=== PATIENT | male | born 1965 | race Caucasian/White ===

== ENCOUNTER 2016-07-04 22:46 | Inpatient (IN) | payer OTHER ==
[~2016-07-04] VITALS: Ht 190.5 cm; Wt 74.8 kg
[2016-07-05 02:00] VITALS: Ht 190.5 cm; Wt 74.8 kg
[2016-07-05] MEDS: SOD CHLORIDE 0.45% 1,000 ML IV SCH ×3 (02:21→22:00)
[2016-07-05] MEDS: NICOTINE (21 MG/24 HR) PATCH TRANSDERM SCH ×2 (02:31→08:38)
[2016-07-05] MEDS ORDERED: LANT3I SC (03:36)
[2016-07-05] MEDS ORDERED: METF-382 PO (03:36)
[2016-07-05] MEDS ORDERED: GABA300C16 PO (03:36)
[2016-07-05] MEDS: morphine 2 MG INJ IV PRN ×4 (03:45→20:04)
[2016-07-05] MEDS ORDERED: ACETAMINOPHEN 325 MG TAB PO PRN (06:00)
[2016-07-05] MEDS ORDERED: ZOLPIDEM 5 MG TAB PO PRN (06:00)
[2016-07-05] MEDS ORDERED: GLUCOSE GEL 15 GRAM TUBE PO PRN ×2 (06:00)
[2016-07-05] MEDS ORDERED: DEXTROSE 50% 50 ML SYRINGE IV PRN ×2 (06:00)
[2016-07-05] MEDS ORDERED: NACL 0.9% 3 ML SYG IV SCH (06:00)
[2016-07-05] MEDS ORDERED: GLUCAGON 1 MG INJ IM PRN (06:00)
[2016-07-05] MEDS ORDERED: GLUCOSE GEL 15 GRAM TUBE BUCCAL PRN (06:00)
[2016-07-05] MEDS ORDERED: ONDANSETRON 4 MG INJ IV PRN (06:00)
[2016-07-05] MEDS ORDERED: DOCUSATE SODIUM 100 MG CAP PO PRN (06:00)
[2016-07-05 06:55] LABS: BASOPHILS % 0.4 % (0.0-2.0); EOSINOPHILS # 0.1 10^3/ul (0.0-0.5); EOSINOPHILS % 1.9 % (0.0-7.0); HEMATOCRIT 38.9 % (42.0-52.0); HEMOGLOBIN 13.3 g/dl (14.0-18.0); LYMPHOCYTES # 2.8 10^3/ul (0.8-2.9); LYMPHOCYTES % 37.9 % (15.0-51.0); MEAN CORPUSCULAR HEMOGLOBIN 32.3 pg (29.0-33.0); MEAN CORPUSCULAR HGB CONC 34.3 g/dl (32.0-37.0); MEAN CORPUSCULAR VOLUME 94.2 fl (82.0-101.0); MEAN PLATELET VOLUME 7.5 fl (7.4-10.4); MONOCYTE # 0.8 10^3/ul (0.3-0.9); MONOCYTES % 10.4 % (0.0-11.0); NEUTROPHIL # 3.7 10^3/ul (1.6-7.5); NEUTROPHILS % 49.4 % (39.0-77.0); PLATELET COUNT 203 10^3/UL (140-440); RED BLOOD COUNT 4.12 10^6/ul (4.70-6.10); RED CELL DISTRIBUTION WIDTH 13.1 % (11.5-14.5); UNCORRECTED WBC 7.5 10^3/ul (4.8-10.8); WHITE BLOOD COUNT 7.5 10^3/ul (4.8-10.8)
[2016-07-05 07:01] LABS: CONDITION 1
--- NOTE | 2016-07-05 07:23 | HP ---
DATE OF ADMISSION: 07/05/2016 TIME: 6:45 a.m. CHIEF COMPLAINT: Left-sided flank pain. HISTORY OF PRESENT ILLNESS: The patient is a 51-year-old male with a history of insulin-dependent d iabetes as well as back pain status post back surgeries in the past. The patient was diagnosed with a kidney stone on the left side approximately 3 months ago and has had intermittent pain since then , but his pain became significantly worse yesterday and presented to [facility] where he barger d a CT scan that did show a kidney stone on the left side. Pain is improved with morphine and he wa s unable to see a urologist as of yet because of insurance reasons. The patient has no other compla ints at this time. PAST MEDICAL HISTORY: Insulin-dependent diabetes. nephrolithiasis diagnosed 3 months ago. The steven ent has never had a previous diagnosis of nephrolithiasis, prior to that, back pain status post back surgery and arthritis. HOME MEDICATIONS: 1. Gabapentin. 2. Lantus. 3. Metformin. ALLERGIES: NO KNOWN DRUG ALLERGIES. FAMILY HISTORY: Mother with rheumatoid arthritis. SOCIAL HISTORY: Denies alcohol abuse. Denies any drug abuse. Does smoke approximately 10 cigarett es a day. REVIEW OF SYSTEMS: A 12-point review of systems is negative except that discussed in HPI. PHYSICAL EXAMINATION: VITAL SIGNS: Stable. GENERAL: No acute distress, alert and oriented. HEENT: Normocephalic, atraumatic. LUNGS: Clear to auscultation. CARDIOVASCULAR: Regular rate and rhythm. ABDOMEN: Nondistended, nontender, soft. EXTREMITIES: No clubbing, cyanosis, or edema. LABORATORIES: Not available at this time. DIAGNOSTICS: Not available at this time. ASSESSMENT AND PLAN: 1. Nephrolithiasis. This was diagnosed 3 months ago and the pain has been intermittent. The pain became significantly worse yesterday. Will treat with IV fluids. Will get a urology consultation w christian Hinkle. 2. Diabetes. Continue home insulin regimen. 3. Chronic back pain. Continue home gabapentin as well as morphine and [place] for pain control. 4. Prophylaxis, ambulation. Dictated By: FREEDOM CHAU MD BS/NTS Conf#: [id number] DID#: [id number]
[2016-07-05 07:24] LABS: POTASSIUM 4.8 mmol/L (3.5-5.1)
[2016-07-05 07:27] LABS: CREATININE 0.82 mg/dl (0.61-1.24); PHOSPHORUS 3.6 mg/dl (2.5-4.9)
[2016-07-05 07:28] LABS: CALCIUM 9.1 mg/dl (8.4-10.2); CHOL/HDL RATIO 2.8 RATIO; MAGNESIUM 1.6 mg/dl (1.7-2.5)
[2016-07-05 07:51] VITALS: BP 117/73; RESP 18
[2016-07-05] MEDS: INSULIN ASPART [NOVOLOG] 3 ML PEN SC SCH ×5 (08:37→20:07)
[2016-07-05] MEDS: GABAPENTIN 300 MG CAP PO SCH ×2 (08:38→20:04)
[2016-07-05] MEDS: metFORMIN 500 MG TAB PO SCH ×2 (08:38→17:15)
[2016-07-05] MEDS: HYDROCODONE/APAP (5/325) TAB PO PRN (11:41)
--- NOTE | 2016-07-05 13:34 | CONS ---
DATE OF ADMISSION: 07/05/2016 DATE OF CONSULTATION: 07/05/2016 REQUESTING PHYSICIAN: Dr. Nick. Dear Dr. Nick: Thank you for asking me to see this patient in urological consultation. HISTORY OF PRESENT ILLNESS: This is a 51-year-old male who initially presented to another hospital, [facility], with left-sided flank pain and had a CT scan and that showed a stone in his left kidney . The patient was transferred to [facility] because of insurance. The patient st ated that he has had this problem for over 3 months and at the time he lost his insurance and then h e became medical eligible again, did regain his insurance and then he came into the emergency room. The patient states that he does have occasional hematuria with the pain and some nausea but no vomi ting. Also does have a history of back pain and he has had a fusion and back surgery lumbar area. PAST MEDICAL HISTORY: The patient is also known to have a history of diabetes and has been on Lantu s and metformin and he also takes gabapentin for peripheral neuropathy and also from his back proble ms. ALLERGIES: THE PATIENT HAS NO KNOWN DRUG ALLERGIES. SOCIAL HISTORY: He smokes about 10 cigarettes a day and he does not drink and there is no history of drug abuse. A systems review was done 12-point and that is negative except what is mentioned in the present report. PHYSICAL EXAMINATION: GENERAL: Reveals a 51-year-old male. He weighs 74.8 kg and he is 75 inches tall. VITAL SIGNS: Temperature is 98.4, respiration is 18, blood pressure 117/73. ABDOMEN: He does have left flank tenderness. GENITALIA: External genitalia are normal. EXTREMITIES: Does have a scar in the lower back from prior surgery. LABORATORY DATA: CBC shows a white count of 7.5, hemoglobin 13.3, hematocrit 38.9. BUN is 22, crea tinine 0.82, sodium 143, potassium 4.8, chloride 101, CO2 30. IMPRESSION History of kidney stones and the patient did undergo a CT scan at [facility], b ut they did not send with him the report or the CT scan on the CD and the patient may be having abner turia because the stone may be at the ureteropelvic junction and causing some bleeding sometime. PLAN: To give him pain medication as needed and also get a KUB to see if one could see the stone an d try to get the report of the CT scan from [facility] and then we will decide on the next step. Dictated By: NARINDER ONEIL MD BB/NTS Conf#: [id number] DID#: [id number] CC: FREEDOM NICK MD;*EndCC*
--- NOTE | 2016-07-05 14:46 | RADRPT ---
PROCEDURE: XR Abdomen. CLINICAL INDICATION: Abdominal pain. TECHNIQUE: AP, supine and erect abdomen x-ray. COMPARISON: None. FINDINGS: The bowel gas pattern is unremarkable. There is no evidence of free air or obstruction. There are 3 calcifications measuring between 3 and 5 mm in size overlying the right kidney to the upper pole and 1 in the lower pole compatible with nephrolithiasis. A 1.2 by 0.7 cm left of white calcification i n the region of the left UPJ. Calcification along the course of the pancreas suggesting chronic alvares creatitis. Posterior lumbar fusion of L4 - L5 and L5-S1. The osseus structures are unremarkable. IMPRESSION: Bilateral nephrolithiasis. Calcifications overlying the pancreas compatible with sequelae of chronic pancreatitis. Posterior lumbar fusion of L4-S1. RPTAT:AAJJ Physician Elda Date Time Electronically viewed and signed by Physician Elda on 07/05/2016 14:23 MELISSA/
[2016-07-05] MEDS ORDERED: MAGNESIUM SULFATE 2 GM/50 ML 50 ML IVPB ONE (15:00)
--- NOTE | 2016-07-05 15:00 | QN ---
Documentation Comment Reviewed labs. Appropriate orders put in. Plan of care was explained to the patient. Case discussed with Dr. Roa. KASHIF HERNANDEZ NP Jul 05, 2016 15:00
[2016-07-05 19:58] VITALS: BP 117/69; RESP 18
[2016-07-05 20:00] VITALS: BP 117/69; PULSE 60; RESP 18
[2016-07-05] MEDS: INSULIN GLARGINE [LANtus] 3 ML PEN SC SCH (20:07)
[2016-07-06] VITALS (11 sets, daily range): BP systolic 108–150; BP diastolic 62–92; PULSE 50–57; RESP 15–29
[2016-07-06] MEDS: ACCUCHECK XX SCH (02:00)
[2016-07-06] MEDS: morphine 2 MG INJ IV PRN ×4 (03:04→19:36)
[2016-07-06] MEDS: SOD CHLORIDE 0.45% 1,000 ML IV SCH ×2 (03:05→14:58)
[2016-07-06 05:47] LABS: BASOPHILS % 0.5 % (0.0-2.0); EOSINOPHILS # 0.2 10^3/ul (0.0-0.5); EOSINOPHILS % 3.7 % (0.0-7.0); HEMATOCRIT 37.7 % (42.0-52.0); HEMOGLOBIN 12.8 g/dl (14.0-18.0); LYMPHOCYTES # 1.8 10^3/ul (0.8-2.9); LYMPHOCYTES % 33.2 % (15.0-51.0); MEAN CORPUSCULAR HEMOGLOBIN 32.1 pg (29.0-33.0); MEAN CORPUSCULAR VOLUME 94.3 fl (82.0-101.0); MEAN PLATELET VOLUME 8.1 fl (7.4-10.4); MONOCYTE # 0.5 10^3/ul (0.3-0.9); MONOCYTES % 9.1 % (0.0-11.0); NEUTROPHIL # 2.9 10^3/ul (1.6-7.5); NEUTROPHILS % 53.5 % (39.0-77.0); PLATELET COUNT 185 10^3/UL (140-440); RED CELL DISTRIBUTION WIDTH 13.3 % (11.5-14.5); UNCORRECTED WBC 5.4 10^3/ul (4.8-10.8); WHITE BLOOD COUNT 5.4 10^3/ul (4.8-10.8)
[2016-07-06 05:56] LABS: POTASSIUM 5.2 mmol/L (3.5-5.1)
[2016-07-06 05:57] LABS: CONDITION 1
[2016-07-06 05:58] LABS: CREATININE 0.8 mg/dl (0.61-1.24)
[2016-07-06 06:09] LABS: MAGNESIUM 1.7 mg/dl (1.7-2.5); PHOSPHORUS 3.8 mg/dl (2.5-4.9)
[2016-07-06] MEDS ORDERED: NEOSTIGMINE 3 MG/3 ML SYRINGE ONE (07:00)
[2016-07-06] MEDS ORDERED: GLYCOPYRROLATE 0.4 MG INJ ONE (07:00)
[2016-07-06] MEDS: INSULIN ASPART [NOVOLOG] 3 ML PEN SC SCH ×7 (07:30→20:56)
[2016-07-06] MEDS: metFORMIN 500 MG TAB PO SCH (07:34)
[2016-07-06] MEDS: NICOTINE (21 MG/24 HR) PATCH TRANSDERM SCH (08:01)
[2016-07-06] MEDS: GABAPENTIN 300 MG CAP PO SCH ×2 (08:01→20:57)
--- NOTE | 2016-07-06 08:47 | RADRPT ---
PROCEDURE: XR Chest. CLINICAL INDICATION: Preoperative chest TECHNIQUE: Chest AP portable. COMPARISON: No comparison available. FINDINGS: The mediastinal structures are unremarkable. The heart is normal in size and configuration. The pu lmonary vascularity is normal. The lung pino are unremarkable. No consolidation is identified. The pleural spaces are unremarkable. The axial skeleton is unremarkable. IMPRESSION: No active intrathoracic disease. RPTAT: HGDB .Ham Macdonald MD, MD Date Time Electronically viewed and signed by .Ham Macdonald MD, MD on 07/06/2016 08:47 .B/
[2016-07-06 10:21] LABS: INR 1.11; PROTIME 14.3 Sec (12.2-14.2); PT RATIO 1.1
[2016-07-06 10:22] LABS: PARTIAL THROMBOPLASTIN TIME 26.3 Sec (25.0-35.0)
[2016-07-06] MEDS ORDERED: NA POLYST SULFON 15 GM/60 ML BTL PO ONE (10:30)
--- NOTE | 2016-07-06 10:40 | PN ---
DATE: 07/06/2016 SUBJECTIVE: Left renal stone with hematuria. Patient has been having abdominal pain and initially went to [facility] and was transferred to [facility] because of capitation on his insurance through [facility]. OBJECTIVE: VITAL SIGNS: The patient is afebrile. His temperature is 97.8, the pulse is 50, respiration 20, bl ood pressure 108/62. ABDOMEN: The patient does have left flank tenderness. LABORATORY DATA: His CBC shows a white count of 5.4, hemoglobin 12.8, hematocrit 37.7. The platele t count is 185,000. BUN is 14, creatinine 0.8, sodium 143, potassium 5.2, chloride 104, CO2 30. Th e patient had a KUB as I ordered yesterday; unfortunately, the KUB was misread as saying calcificati on overlying the pancreas compatible with sequela of chronic pancreatitis, and I don't think that is correct, that calcification. There is a calcification, 1.2 x cm stone, at the left ureterope lvic junction. And there may be calcification sequela of pancreatitis, but there is also that stone of 1.2 x mm stone at the left ureteropelvic junction. IMPRESSION: Left ureteropelvic junction stone. PLAN: To do a left extracorporeal shock wave lithotripsy, and also in case we cannot visualize the stone on the plain film, we will do a cystoscopy and insertion of left ureteral catheter to try to v isualize that stone. The procedure was explained to the patient; benefits, risks, possible complica tions were also discussed with him including and not limited to bleeding, infection stone fragments coming down the ureter and causing obstruction to where he needs another procedure with ureteroscopy and laser lithotripsy, and the patient did understand all of that and he is agreeable to proceed. Dictated By: NARINDER ONEIL MD BB/ELIDA Conf#: [id number] DID#: [id number] CC: FREEDOM CHAU MD;*EndCC*
--- NOTE | 2016-07-06 10:41 | PN ---
DATE: 07/06/2016 TIME OF EVALUATION: 10:15 a.m. SUBJECTIVE DATA: Complains of abdominal pain with spasms. OBJECTIVE DATA: VITAL SIGNS: Temperature 97.8, pulse rate 50, respiratory rate 20, blood pressure 108/62, oxygen saturation 98% on room air. GENERAL: This is a well-built, well-nourished male patient lying in bed in no apparent distress. HEENT: Head normocephalic and atraumatic. Eyes: Anicteric sclerae. Conjunctivae clear. ENT: Nasal septum is midline. Oral mucosa is dry. NECK: Supple. No JVD noticed. RESPIRATORY: Bilaterally clear to auscultation. No adventitious breath sounds. No use of accessory muscles of respiration. CARDIAC: Regular rate and rhythm. No murmurs. ABDOMEN: Soft. Diffuse tenderness. Bowel sounds hypoactive in all 4 quadrants. GENITOURINARY: Deferred. EXTREMITIES: No cyanosis, no clubbing, no edema. Peripheral pulses palpable. NEUROLOGIC: The patient is awake, alert and oriented. Cranial nerves are grossly intact. LABORATORY AND DIAGNOSTIC DATA: WBC 5.4, hemoglobin 12.8, hematocrit 37.7, platelet count 185. Sodium 143, potassium 5.0, chloride 104, carbon dioxide 30 , anion gap 14, BUN 14, creatinine 0.80, glucose 146, calcium 9.0, phosphorus 3.8, magnesium 1.7. ASSESSMENT AND PLAN: 1. Symptomatic nephrolithiasis. Continue pain control. Status post evaluation by urology. Scheduled for left extracorporeal shock wave lithotripsy and possible cystoscopy and insertion of left ureteral catheter. The patient's renal function is within normal limits. 2. Type 2 diabetes mellitus. Hemoglobin A1c 7.4. Continue sliding scale insulin along with Lantus insulin. Metformin will be put on hold in case if there is any use of IV contrast during the surgery. 3. Hyperkalemia. Etiology unclear. No evidence of any acidosis or worsening renal function. Will give a single dose of potassium exchange resin. 4. Sinus bradycardia. The patient asymptomatic. A 12-lead EKG showing right bundle branch block. Avoid any AV galo blocking agents. 5. Diabetic neuropathy. Continue gabapentin. 6. Nicotine use. Cessation advised. 7. Fluid, electrolytes and nutrition. NPO except for medications for surgery. 8. Deep venous thrombosis prophylaxis with bilateral sequential compression devices and ambulation. 10. Gastrointestinal prophylaxis with histamine 2 receptor blockers. PLAN: Give a single dose of potassium exchange of resin. Continue pain control. Await urology intervention. Case discussed with Dr. Brown. KASHIF BROWN MD, AM/ELIDA Conf#: [id number] DID#: [id number] MTDD
[2016-07-06] MEDS: FAMOTIDINE 20 MG TAB PO SCH ×2 (11:15→20:57)
[2016-07-06 12:43] LABS: POTASSIUM 4.1 mmol/L (3.5-5.1)
[2016-07-06] MEDS ORDERED: LIDOCAINE 100 MG SYRINGE ONE (17:34)
[2016-07-06] MEDS ORDERED: DEXAMETHASONE 4 MG/ML 1 ML INJ ONE (17:34)
[2016-07-06] MEDS ORDERED: ROCURONIUM 50 MG INJ ONE (17:34)
[2016-07-06] MEDS ORDERED: ONDANSETRON 4 MG INJ ONE (17:34)
[2016-07-06] MEDS ORDERED: PROPOFOL 20 ML ONE (17:34)
--- NOTE | 2016-07-06 19:37 | OPR ---
DATE OF OPERATION: 07/06/2016 PREOPERATIVE DIAGNOSIS: Left ureteropelvic junction stone measuring 12 x 8 mm in size. POSTOPERATIVE DIAGNOSIS: Left ureteropelvic junction stone measuring 12 x 8 millimeter in size. OPERATION PERFORMED: Left extracorporeal shock wave lithotripsy. TECHNIQUE: The patient was brought to the operating room. The patient was positioned in the supine position on the lithotripsy machine table. Fluoroscopy was done to make sure that we were able to see the stone, and indeed, one could see the stone; therefore, there was no need to do any cystoscop y or insert a ureteral catheter. Then, the patient was given general anesthesia and a timeout was d one. The patient was identified by his name, date and the site of the procedure. Following that, the patient was adjusted on the lithotripsy machine table. So the stone was visuali zed on the 2 screens, and the stone was put in the focal point of the lithotripsy machine. As we st arted to deliver the energy for the lithotripsy, he immediately started having PVCs; therefore, we h ad to gauge him. So we had another set of cardiac monitoring hooked to the machine and that allowed us to gauge him all the time; there were no further PVCs. The energy was started with low and grad ually went up to 7. The position of the stone was regularly checked and position adjusted. Now and then we did remove the shock head and looked at the stone again to make sure that we were still on it and then resumed the treatment after that. We kept checking that. At the end of the procedure, he received a total of 2500 shocks to the stone and the patient at the end was transferred to the re covery room in stable and satisfactory condition. Dictated By: NARINDER WORTHY/ELIDA Conf#: [id number] DID#: [id number]
--- NOTE | 2016-07-06 20:28 | RADRPT ---
PROCEDURE: Intraoperative imaging of the abdomen with fluoroscopy. CLINICAL INDICATION: Abdominal pain. Intraoperative. TECHNIQUE: 12 images of the abdomen and pelvis were obtained in the operating room with an image i ntensifier. No radiologist was in attendance. 229.4 second of fluoroscopy time was used. COMPARISON: No prior study is available for comparison. FINDINGS: Images demonstrate fluoroscopic guidance for left renal lithotripsy. IMPRESSION: 1. Satisfactory intraoperative imaging of the abdomen. RPTAT: QQ .Sharif Dean MD, Date Time Electronically viewed and signed by .Sharif Dean MD, on 07/06/2016 20:28 .R/
[2016-07-06] MEDS: INSULIN GLARGINE [LANtus] 3 ML PEN SC SCH (20:59)
[2016-07-07] MEDS: ACCUCHECK XX SCH (01:15)
[2016-07-07] MEDS: morphine 2 MG INJ IV PRN ×4 (01:48→14:20)
[2016-07-07] MEDS: SOD CHLORIDE 0.45% 1,000 ML IV SCH ×2 (05:05→14:41)
[2016-07-07 06:29] LABS: BASOPHILS % 0.2 % (0.0-2.0); HEMATOCRIT 37.6 % (42.0-52.0); HEMOGLOBIN 13.1 g/dl (14.0-18.0); LYMPHOCYTES # 0.4 10^3/ul (0.8-2.9); LYMPHOCYTES % 10.5 % (15.0-51.0); MEAN CORPUSCULAR HEMOGLOBIN 32.8 pg (29.0-33.0); MEAN CORPUSCULAR HGB CONC 34.9 g/dl (32.0-37.0); MEAN PLATELET VOLUME 8.2 fl (7.4-10.4); MONOCYTE # 0.2 10^3/ul (0.3-0.9); MONOCYTES % 3.8 % (0.0-11.0); NEUTROPHIL # 3.4 10^3/ul (1.6-7.5); NEUTROPHILS % 85.5 % (39.0-77.0); PLATELET COUNT 186 10^3/UL (140-440); RED CELL DISTRIBUTION WIDTH 12.9 % (11.5-14.5)
[2016-07-07 06:43] LABS: CONDITION 1
[2016-07-07 06:45] LABS: ALBUMIN 3.5 g/dl (3.3-4.9)
[2016-07-07 06:46] LABS: MAGNESIUM 1.5 mg/dl (1.7-2.5); PHOSPHORUS 4.3 mg/dl (2.5-4.9); POTASSIUM 4.5 mmol/L (3.5-5.1)
[2016-07-07 06:48] LABS: ALBUMIN/GLOBULIN RATIO 1.34; BILIRUBIN,INDIRECT 0.4 mg/dl (0-1.1); BILIRUBIN,TOTAL 0.4 mg/dl (0.2-1.3); CREATININE 0.63 mg/dl (0.61-1.24); TOTAL PROTEIN 6.1 g/dl (6.1-8.1)
[2016-07-07 06:49] LABS: CALCIUM 8.9 mg/dl (8.4-10.2)
[2016-07-07] MEDS: INSULIN ASPART [NOVOLOG] 3 ML PEN SC SCH ×6 (07:59→17:04)
[2016-07-07] MEDS: GABAPENTIN 300 MG CAP PO SCH (08:07)
[2016-07-07] MEDS: FAMOTIDINE 20 MG TAB PO SCH (08:07)
[2016-07-07] MEDS: NICOTINE (21 MG/24 HR) PATCH TRANSDERM SCH (08:08)
[2016-07-07 08:11] VITALS: BP 125/74; RESP 16
--- NOTE | 2016-07-07 08:39 | PN ---
Date/Time of Note Date/Time of Note DATE: 07/07/16 TIME: 08:33 Assessment/Plan VTE Prophylaxis VTE Prophylaxis Intervention: ambulation, SCD's Lines/Catheters IV Catheter Type (from Nrsg): Peripheral IV Urinary Cath still in place: No Assessment/Plan Assessment/Plan 1. Symptomatic nephrolithiasis s/p Left extracorporeal shock wave lithotripsy 07/06/15 2. Type 2 diabetes mellitus. Hemoglobin A1c 7.4. Continue sliding scale insulin along with Lantus insulin / resume metformin 3. Hyperkalemia. Etiology unclear. No evidence of any acidosis or worsening renal function. : resolved. ?med induced 4. Sinus bradycardia. The patient asymptomatic. A 12-lead EKG showing right bundle branch block. Avoid any AV galo blocking agents. 5. Diabetic neuropathy. Continue gabapentin. 6. Nicotine use. Cessation advised. 7. Normocytic anemia: with a hx of kidney stones may be 2/2 chronic blood loss from microscopic hematuria / will order iron panel 8. Deep venous thrombosis prophylaxis with bilateral sequential compression devices and ambulation. 10. Gastrointestinal prophylaxis with histamine 2 receptor blockers. PLAN: continue post op care / f/u urology recs. Subjective 24 Hr Interval Summary Free Text/Dictation Patient seen and examined. feels ok, but still with some pain Exam/Review of Systems Vital Signs Vitals Vital Signs Date Time Temp Pulse Resp B/P Pulse Ox O2 Delivery O2 Flow Rate FiO2 07/07/16 08:11 97.9 65 16 125/74 97 07/06/16 19:26 Room Air 07/06/16 19:11 4.0 Intake and Output 07/06/16 07/06/16 07/07/16 15:00 23:00 07:00 Intake Total 700 ml 1480 ml 1220 ml Output Total 2000 ml Balance 700 ml 1480 ml -780 ml Exam GENERAL: This is a well-built, well-nourished male patient lying in bed in no apparent distress. HEENT: Head normocephalic and atraumatic. Eyes: Anicteric sclerae. Conjunctivae clear. ENT: Nasal septum is midline. Oral mucosa is dry. NECK: Supple. No JVD noticed. RESPIRATORY: Bilaterally clear to auscultation. No adventitious breath sounds. No use of accessory muscles of respiration. CARDIAC: Regular rate and rhythm. No murmurs. ABDOMEN: Soft. Diffuse tenderness. Bowel sounds hypoactive in all 4 quadrants. GENITOURINARY: Deferred. EXTREMITIES: No cyanosis, no clubbing, no edema. Peripheral pulses palpable. NEUROLOGIC: The patient is awake, alert and oriented. Cranial nerves are grossly intact. Results Result Diagram: 07/07/16 0515 07/07/16 0515 Results 24 hrs Laboratory Tests Test 07/06/16 09:50 07/06/16 11:08 07/06/16 12:20 07/06/16 16:19 Activated Partial Thromboplast Time 26.3 INR International Normalized Ratio 1.11 Prothrombin Time 14.3 H Prothrombin Time Ratio 1.1 Bedside Glucose 84 90 Anion Gap 14 Carbon Dioxide Level 31 Chloride Level 102 Potassium Level 4.1 Sodium Level 143 Test 07/06/16 19:24 07/06/16 20:20 07/07/16 05:15 07/07/16 07:54 Bedside Glucose 116 153 189 Alanine Aminotransferase (ALT/SGPT) 44 Albumin 3.5 Albumin/Globulin Ratio 1.34 Alkaline Phosphatase 58 Anion Gap 16 Aspartate Amino Transf (AST/SGOT) 34 Basophils # 0.0 Basophils % 0.2 Blood Urea Nitrogen 13 Calcium Level 8.9 Carbon Dioxide Level 28 Chloride Level 101 Creatinine 0.63 Direct Bilirubin 0.00 Eosinophils # 0.0 Eosinophils % 0.0 Globulin 2.60 Glucose Level 199 Hematocrit 37.6 L Hemoglobin 13.1 L Indirect Bilirubin 0.4 Lymphocytes # 0.4 L Lymphocytes % 10.5 L Magnesium Level 1.5 L Mean Corpuscular Hemoglobin 32.8 Mean Corpuscular Hemoglobin Concent 34.9 Mean Corpuscular Volume 94.0 Mean Platelet Volume 8.2 Monocytes # 0.2 L Monocytes % 3.8 Neutrophils # 3.4 Neutrophils % 85.5 H Nucleated Red Blood Cells # 0.0 Nucleated Red Blood Cells % 0.0 Phosphorus Level 4.3 Platelet Count 186 Potassium Level 4.5 Red Blood Count 4.00 L Red Cell Distribution Width 12.9 Sodium Level 140 Total Bilirubin 0.4 Total Protein 6.1 White Blood Count 4.0 #L Medications Medications Current Medications Morphine Sulfate (morphine) 2 mg Q3H PRN IV PAIN LEVEL 7-10 Last administered on 07/07/16t 08:06; Admin Dose 2 MG; Start 07/05/16 at 02:00 Acetaminophen/ Hydrocodone Bitart ([place] (5/325)) 1 tab Q4H PRN PO PAIN LEVEL 4 -7 Last administered on 07/05/16 11:41; Admin Dose 1 TAB; Start 07/05/16 at 02:00 Nicotine 1 patch 1 patch DAILY TRANSDERM Last administered on 07/07/16 08:08; Admin Dose 1 PATCH; Start 07/05/16 at 02:00 Sodium Chloride (1/2 NS) 1,000 ml @ 100 mls/hr Q10H IV Last administered on 05:05; Admin Dose 100 MLS/HR; Start 07/05/16 at 02:00 Miscellaneous Information Patients own medicat... BID@10,16 XX ; Start 07/05/16 at 10:00 Ondansetron HCl (Zofran Inj) 4 mg Q6H PRN IV NAUSEA AND/OR VOMITING; Start 07/05 at 06:00 Acetaminophen (Tylenol Tab) 650 mg Q6H PRN PO PAIN LEVEL 1-3 OR FEVER; Start at 06:00 Docusate Sodium (Colace) 100 mg Q12H PRN PO CONSTIPATION; Start 07/05/16 at 06: 00 Zolpidem Tartrate (Ambien) 5 mg QHS PRN PO SLEEP; Start 07/05/16 at 06:00 Gabapentin (Neurontin) 300 mg BID PO Last administered on 07/07/16 08:07; Admin Dose 300 MG; Start 07/05/16 at 09:00 Insulin Glargine (Lantus) 15 unit QHS SC Last administered on 07/06/16 20:59; Admin Dose 15 UNIT; Start 07/05/16 at 21:00 Diagnostic Test (Pha) (Accucheck) 1 ea 02 XX ; Start 07/06/16 at 02:00 Miscellaneous Information 1 ea NOTE XX ; Start 07/05/16 at 06:00 Glucose (Glutose) 15 gm Q15M PRN PO DECREASED GLUCOSE; Start 07/05/16 at 06:00 Glucose (Glutose) 22.5 gm Q15M PRN PO DECREASED GLUCOSE; Start 07/05/16 at 06:00 Dextrose (D50w Syringe) 25 ml Q15M PRN IV DECREASED GLUCOSE; Start 07/05/16 at 06:00 Dextrose (D50w Syringe) 50 ml Q15M PRN IV DECREASED GLUCOSE; Start 07/05/16 at 06:00 Glucagon (Glucagen) 1 mg Q15M PRN IM DECREASED GLUCOSE; Start 07/05/16 at 06:00 Glucose (Glutose) 15 gm Q15M PRN BUCCAL DECREASED GLUCOSE; Start 07/05/16 at 06: 00 Famotidine (Pepcid) 20 mg BID PO Last administered on 07/07/16 08:07; Admin Dose 20 MG; Start 07/06/16 at 11:15 KISHAN PINEDO Jul 07, 2016 08:39
--- NOTE | 2016-07-07 08:40 | PN ---
DATE: 07/07/2016 SUBJECTIVE: This patient is status left extracorporeal shockwave lithotripsy to a left ureteropelvi c junction stone. The patient is doing well. He does have some neck pain. Also his abdomen is sof t. OBJECTIVE: VITAL SIGNS: He is afebrile. Temperature is 97.3, pulse is 52, respirations 18, blood pressure 145 /84. ABDOMEN: Soft. There is no tenderness. Urine is clear. LABORATORY DATA: CBC shows a white count of 4.0. Hemoglobin 13.1. BUN is 13, creatinine 0.63. El ectrolytes are normal. The KUB today showed the calcification over the pancreas as before, and also where the stone was on the left ureteropelvic junction is no longer seen. IMPRESSION: Status post ESWL. Patient doing well. RECOMMENDATION: The patient could go home today on pain medications, and he should have urine strai ner to strain his urine at home. Should he pass any stone or stone fragments, he should save them s o we could send them for analysis later on, and I would like to see him in the office in about 3 wee ks or so, and he should call my office, and I left my phone number with the nurse to give it to him. Dictated By: NARINDER WORTHY/ELIDA Conf#: [id number] DID#: [id number]
--- NOTE | 2016-07-07 08:48 | RADRPT ---
PROCEDURE: XR Abdomen. CLINICAL INDICATION: Left renal stone TECHNIQUE: AP abdomen x-ray. COMPARISON: July 05, 2016, July 06, 2016 FINDINGS: The previously seen 12 mm left renal stone is no longer visualized. The previously seen 3 mm right renal calcifications appear to be stable. Colonic constipation is present. There are no findings of bowel obstruction or perforation. There is fusion hardware in the lumbar spine. IMPRESSION: Previously seen 12 mm left renal stone no longer visualized. 3 mm small right renal calcifications appear stable. Colonic constipation. RPTAT: QQ .Oralia Villafana MD, MD Date Time Electronically viewed and signed by .Oraila Villafana MD, MD on 07/07/2016 08:48 .F/
[2016-07-07] MEDS ORDERED: MAGNESIUM SULFATE 2 GM/50 ML 50 ML IVPB ONE (10:00)
--- NOTE | 2016-07-07 10:06 | DS ---
DATE OF ADMISSION: 07/05/2016 DATE OF DISCHARGE: 07/07/2016 PRESENTING COMPLAINT: Left-sided flank pain. ADMISSION DIAGNOSES: 1. Nephrolithiasis, with intermittent worsening pain. 2. Diabetes type 2. 3. Chronic back pain. CONSULTS ON THE CASE: Daniel Hinkle MD INTERVENTIONS: The patient had multiple abdominal x-rays. On the he had an abdominal x-ray that showed bilateral nephrolithiasis with calcifications overlying the pancreas, compatible with a sequ elae of chronic pancreatitis. Post-lumbar fusion of L4 and S1. On the he had a cystogram and x -ray that showed satisfactory intraoperative imaging of the abdomen. He also had a chest x-ray on t 06 of July that showed no active intrathoracic disease. A final abdominal x-ray done this mor benjamín showed the previously seen 12-mm left renal stone no longer visualized, a 3-mm small right vicky l calcification appears stable, and colonic constipation was also noted. The patient also had left extracorporeal shock wave lithotripsy done 07/04/2016, that was successful based on the followup x-r ays done 07/07/2016. SHORT HOSPITALIZATION COURSE: Full details are available in the chart for review. In summary, this is a pleasant 51-year-old male who was admitted with severe flank pain and was found to have a very large left renal stone, which was broken down with the use of extracorporeal wave lithotripsy and th e patient's pain is improved and he is feeling much better at this time. He has been [facility] from a urology standpoint. FINAL DIAGNOSES: Based on our clinical findings and lab work are as follows: 1. Symptomatic nephrolithiasis status post left extracorporeal shock wave lithotripsy 07/06/2016, w ith severe left-sided flank pain that is now resolved. 2. Type 2 diabetes mellitus, with fairly good home control, with a hemoglobin A1c of 7.4. 3. Hyperkalemia. Etiology unclear. Resolved. 4. Sinus bradycardia. Asymptomatic. Stable. 5. Chronic diabetic neuropathy. On gabapentin. 6. Chronic nicotine use. Status post cessation counseling. 7. Normocytic anemia with a history of kidney stones. May be secondary to chronic blood loss from postoperative hematuria. 8. Chronic back pain with a history of lumbar fusion. 9. Hypomagnesemia, for which we will replace. DISPOSITION: To home. Activities as tolerated. Followup recommended with his primary care physici an within 1-2 weeks to ensure continued resolution of symptoms. FINAL DISCHARGE MEDICATIONS: List was reviewed. For discharge medications, please review the patien t's discharge medication list. Recommended diet is 1800 ADA. Time spent on this discharge has been about 45 minutes. Dictated By: KISHAN PINEDO MD BA/ELIDA Conf#: [id number] DID#: [id number]
--- NOTE | 2016-07-07 10:43 | PDOCDIS ---
Discharge Instructions DIAGNOSIS Discharge Diagnosis: symptomatic kidney stones CONDITION Patient Condition: Stable HOME CARE INSTRUCTIONS: Special Diet: Carb Control, 1800 Calorie ACTIVITY: Activity Restrictions: Slowly Increase Activity Rest between Activity Do not operate Machinery (while on pain meds) Do not operate Power Tool (while on pain meds) FOLLOW UP/APPOINTMENTS Appointments Followup with your primary doctor within the next 1-2 weeks. If you don't have one please let someone know, we can give you resources that may help you pick one. You may also call your insurance company to assign one to you. Review your medication list with your nurse before leaving and if you need new prescriptions please let your nurse know. I may have made changes to your home medications or given you new prescriptions , please let your primary doctor know as well. Stay compliant with your medications and report any side effects to your PCP or pharmacist. Return to the ER if you have any concerns and cannot reach your doctors or call your insurance company, they usually have a nurse that can help you. KISHAN PINEDO Jul 07, 2016 10:43
[2016-07-07] MEDS ORDERED: HYDR-3498 PO (10:44)
[2016-07-07] MEDS ORDERED: DOCU-144 PO (10:44)
[2016-07-07] MEDS: HYDROCODONE/APAP (5/325) TAB PO PRN ×2 (11:13→17:01)
--- NOTE | 2016-07-07 12:13 | RADRPT ---
Vent Rate: 57 bpm RR Interval: 0 msec PA Interval: 148 msec QRS Duration: 100 msec QT Interval: 410 msec QTC Interval: 399 msec P-R-T Doss: 60 - 67 - 65 degrees Sinus bradycardia Normal EKG Electronically Signed By: Lee Agee [id number]
[2016-07-07] MEDS: metFORMIN 500 MG TAB PO SCH (18:05)
== END 2016-07-07 18:17 | disposition home or self-care (01) | DRG 661 ==
LOC: PP2 07-05 01:38
PROVIDERS: ADMIT Internal Medicine; ATTEND Internal Medicine
PROC: 0TC18ZZ Extirpation of Matter from Left Kidney, Via Natural or Artificial Opening Endoscopic (ICD-10-PCS; principal; 2016-07-05)
DX: N20.0 Calculus of kidney (principal); E11.40 Type 2 diabetes mellitus with diabetic neuropathy, unspecified; E87.5 Hyperkalemia; F17.200 Nicotine dependence, unspecified, uncomplicated; I45.10 Unspecified right bundle-branch block; D50.0 Iron deficiency anemia secondary to blood loss (chronic); I49.3 Ventricular premature depolarization; Z79.4 Long term (current) use of insulin; M54.9 Dorsalgia, unspecified
CPT/HCPCS: 71010; 74000; 74430; 80048; 80051; 80053; 80061; 82962; 83036; 83735; 84100; 85025; 85610; 85730; 93005; J1100; J1815; J2001; J2270; J2405; J2710; J3010; J3475

== ENCOUNTER 2016-07-18 21:53 | Emergency (ER) | payer OTHER ==
[~2016-07-18] VITALS: Ht 190.5 cm; Wt 73.5 kg
[~2016-07-18 21:53] MED LIST: DOCU-144 PO; GABA300C16 PO; HYDR-3498 PO; LANT3I SC; METF-382 PO
[2016-07-18 21:57] VITALS: Ht 190.5 cm; Wt 73.5 kg
[2016-07-19] MEDS ORDERED: ONDANSETRON 4 MG INJ IV STA (00:02)
[2016-07-19] MEDS ORDERED: morphine 4 MG/ML VIAL IV STA (00:02)
--- NOTE | 2016-07-19 01:08 | RADRPT ---
PROCEDURE: CT abdomen and pelvis without intravenous contrast. CLINICAL INDICATION: Pain. TECHNIQUE: CT of the abdomen/pelvis was performed utilizing axial images with reconstructions in s agittal and coronal planes. The administered radiation dose is CTDI 6.7 mGy, DLP 96.4 mGy-cm. COMPARISON: No pertinent prior examinations were submitted for comparison. FINDINGS: Visualized Chest: The visualized lung bases are clear. Abdomen: The spleen, gallbladder,and adrenal glands are unremarkable. The liver is diffusely decreased in attenuation, compatible with hepatic steatosis. Coarse calcifications are noted throughout the pancr eas. The kidneys are without hydronephrosis. Small nonobstructive calculi are noted within both kidneys. There are mild left perinephric and periureteral fat infiltrative changes. There is a 4.2 by 1.6 c m intermediate density subcapsular collection along the posterior aspect of the left kidney. There is no evidence of bowel obstruction. The appendix is normal. No intra-abdominal free air is seen. There is no evidence of intra-abdominal adenopathy or free fluid. Pelvis: There is no evidence of pelvic adenopathy of free fluid. The prostate and bladder are unremarkable. Osseous structures: Prior laminectomy infusion of L4-S1 is noted. IMPRESSION: Bilateral nephrolithiasis without hydronephrosis. Small subcapsular collection along the left kidney presumably due to a subcapsular hematoma. Please correlate for recent trauma or instrumentation. Hepatic steatosis. Pancreatic calcifications compatible with chronic pancreatitis. RPTAT: HIKT .Phillip Humphries MD, MD Date Time Electronically viewed and signed by .Phillip Humphries MD, MD on 07/19/2016 01:07 .T/
[2016-07-19 02:18] LABS: ADD UMIC YES; URINE BILIRUBIN (Dip) NEGATIVE (NEGATIVE); URINE BLOOD (Dip) 1+ (NEGATIVE); URINE COLOR LT. YELLOW (YELLOW); URINE GLUCOSE (Dip) NEGATIVE (NEGATIVE); URINE KETONES (Dip) TRACE (NEGATIVE); URINE LEUKOCYTE ESTERASE (Dip) NEGATIVE (NEGATIVE); URINE NITRITE (Dip) NEGATIVE (NEGATIVE); URINE TOTAL PROTEIN (Dip) NEGATIVE (NEGATIVE); URINE UROBILINOGEN (Dip) 0.2 E.U./dL (0.1-1.0)
[2016-07-19 02:25] LABS: BASOPHIL # 0.3 10^3/ul (0.0-0.1); BASOPHILS % 2.5 % (0.0-2.0); EOSINOPHILS # 0.1 10^3/ul (0.0-0.5); EOSINOPHILS % 1.2 % (0.0-7.0); HEMATOCRIT 43.7 % (42.0-52.0); HEMOGLOBIN 14.7 g/dl (14.0-18.0); LYMPHOCYTES # 3.5 10^3/ul (0.8-2.9); LYMPHOCYTES % 32.9 % (15.0-51.0); MEAN CORPUSCULAR HEMOGLOBIN 31.9 pg (29.0-33.0); MEAN CORPUSCULAR HGB CONC 33.6 g/dl (32.0-37.0); MEAN CORPUSCULAR VOLUME 94.9 fl (82.0-101.0); MEAN PLATELET VOLUME 7.5 fl (7.4-10.4); MONOCYTE # 0.6 10^3/ul (0.3-0.9); MONOCYTES % 5.7 % (0.0-11.0); NEUTROPHIL # 6.1 10^3/ul (1.6-7.5); NEUTROPHILS % 57.7 % (39.0-77.0); PLATELET COUNT 288 10^3/UL (140-440); RED BLOOD COUNT 4.61 10^6/ul (4.70-6.10); RED CELL DISTRIBUTION WIDTH 13.6 % (11.5-14.5); UNCORRECTED WBC 10.5 10^3/ul (4.8-10.8); WHITE BLOOD COUNT 10.5 10^3/ul (4.8-10.8)
[2016-07-19 02:26] LABS: CONDITION 1
--- NOTE | 2016-07-19 02:35 | ERD ---
ER Documentation Chief Complaint Date/Time DATE: 07/19/16 TIME: 02:32 Chief Complaint INT. LT FLANK PAIN X "MONTHS"; DENIES N/V, SX'S, FEVERS AND CHILLS. HPI Patient is a 51-year-old male diabetic male who presents to the ED with left flank pain for months. He states that he has a history of kidney stones. He states that the pain is just located in his left flank. He denies fever or chills. Denies nausea, vomiting or diarrhea. He denies abdominal pain. He denies urinary symptoms. He denies chest pain, cough, shortness of breath or difficulty breathing. Denies headache or dizziness. Denies polyphagia, polyuria or polydipsia. Denies any other symptoms. ROS All systems reviewed and are negative except as per history of present illness. Medications Home Meds Active Scripts Ondansetron Hcl* (Zofran*) 4 Mg Tablet, 4 MG PO Q6H for NAUSEA AND/OR VOMITING, #30 TAB Prov:DARREL QUINONEZ PA-C 07/19/16 Hydrocodone/Acetaminophen ([place] 5-325 Tablet) 1 Each Tablet, 1 TAB PO Q6H Y for PAIN, #7 TAB Prov:DARREL QUINONEZ PA-C 07/19/16 Docusate Sodium* (Colace*) 100 Mg Capsule, 100 MG PO BID, #14 CAP Prov:KISHAN PINEDO. 07/07/16 Hydrocodone Bit-Acetaminophen (Hydrocodone Bit-APAP) 5-325MG Tablet, 1 TAB PO Q6H Y for PAIN LEVEL 4-7 for 24 Days, TAB Prov:KISHAN PINEDO 07/07/16 Reported Medications Insulin Glargine* (Lantus*) 100 Unit/Ml Soln, 15 UNIT SC QHS, #1 VIAL 07/05/16 Gabapentin* (Gabapentin*) 300 Mg Capsule, 300 MG PO BID, #60 CAP 07/05/16 Metformin Hcl* (Metformin Hcl*) 500 Mg Tablet, 500 MG PO WITH BREAKFAST DINNE, # 30 TAB 07/05/16 Allergies Allergies: Coded Allergies: No Known Drug Allergies (Unverified Allergy, Unknown, 07/05/16) PMhx/Soc History of Surgery: Yes (BACK SURGERY X 2) Anesthesia Reaction: No Hx Neurological Disorder: No Hx Respiratory Disorders: No Hx Cardiac Disorders: No Hx Psychiatric Problems: Yes (DEPRESSION ) Hx Miscellaneous Medical Probl: Yes (KIDNEY STONES) Hx Alcohol Use: Yes (OCCASSIONAL DRINKER) Hx Substance Use: Yes (MARIJUANA 7 MONTHS AGO) Hx Tobacco Use: Yes (10 CIGS/ DAY) Smoking Status: Current every day smoker FmHx Family History: No coronary disease, No diabetes, No other Physical Exam Vitals Vital Signs Date Time Temp Pulse Resp B/P Pulse Ox O2 Delivery O2 Flow Rate FiO2 07/19/16 03:13 98.5 85 16 120/79 99 Room Air 07/18/16 21:57 98.5 98 18 155/72 97 Physical Exam GENERAL: Well-developed, well-nourished male. Appears in no acute distress. HEAD: Normocephalic, atraumatic. EYES: Pupils are equally reactive bilaterally. EOMs grossly intact. No conjunctival erythema. ENT: Moist mucous membranes. No uvula deviation. No kissing tonsils. No exudates. NECK: Supple. No lymphadenopathy or thyromegaly. No meningismus. negative kernig. negative brudinski. LUNG: Clear to auscultation bilaterally. No rhonchi, wheezing, rales or coarse breath sounds. HEART: Regular rate and rhythm. No murmurs, rubs or gallops. ABDOMEN: No scars, ecchymosis or rashes noted. Soft, nontender, and nondistended. Positive bowel sounds in all four quadrants. No rebound tenderness , no guarding. (-) McBurneys point tenderness. Mild left-sided CVA tenderness BACK: No midline tenderness. Extremities: Equal pulses bilaterally. No peripheral clubbing, cyanosis or edema. No unilateral leg swelling. NEUROLOGIC: Alert and oriented. Moving all four extremities. 5/5 strength in all extremities. Normal speech. Steady gait. SKIN: Normal color. Warm and dry. No rashes or lesions. Capillary refill < 2 seconds Result Diagram: 07/19/163907/19/16 0040 Results 24 hrs Laboratory Tests Test 07/19/16 00:40 Alanine Aminotransferase (ALT/SGPT) 74IU/L Albumin 4.4g/dl Albumin/Globulin Ratio 1.33 Alkaline Phosphatase 98IU/L Anion Gap 22 Aspartate Amino Transf (AST/SGOT) 92IU/L Basophils # 0.310^3/ul Basophils % 2.5% Blood Urea Nitrogen 12mg/dl Calcium Level 9.1mg/dl Carbon Dioxide Level 27mmol/L Chloride Level 107mmol/L Creatinine 0.70mg/dl Direct Bilirubin 0.00mg/dl Eosinophils # 0.110^3/ul Eosinophils % 1.2% Globulin 3.30g/dl Glucose Level 69mg/dl Hematocrit 43.7% Hemoglobin 14.7g/dl Indirect Bilirubin 0.1mg/dl Lipase < 10U/L Lymphocytes # 3.510^3/ul Lymphocytes % 32.9% Mean Corpuscular Hemoglobin 31.9pg Mean Corpuscular Hemoglobin Concent 33.6g/dl Mean Corpuscular Volume 94.9fl Mean Platelet Volume 7.5fl Monocytes # 0.610^3/ul Monocytes % 5.7% Neutrophils # 6.110^3/ul Neutrophils % 57.7% Nucleated Red Blood Cells # 0.010^3/ul Nucleated Red Blood Cells % 0.0/100WBC Platelet Count 38222^3/UL Potassium Level 3.8mmol/L Red Blood Count 4.6110^6/ul Red Cell Distribution Width 13.6% Sodium Level 152mmol/L Total Bilirubin 0.1mg/dl Total Protein 7.7g/dl Urine Bacteria RARE Urine Bilirubin NEGATIVE Urine Clarity CLEAR Urine Color LT. YELLOW Urine Glucose NEGATIVE% Urine Hemoglobin 1+ Urine Ketones TRACE Urine Leukocyte Esterase NEGATIVE Urine Microscopic RBC 2-5/HPF Urine Microscopic WBC 0-2/HPF Urine Nitrite NEGATIVE Urine Specific [place] >=1.030 Urine Squamous Epithelial Cells RARE Urine Total Protein NEGATIVE Urine Urobilinogen 0.2 E.U./dL Urine pH 5.0 White Blood Count 10.510^3/ul Current Medications Medications (Trade) Dose Ordered Sig/Veronica Route PRN Reason Start Time Stop Time Status Last Admin Dose Admin Morphine Sulfate (morphine) 4 mg ONCE STAT IV 07/19/16 00:02 07/19/16 00:06 DC 07/19/16 00:40 Ondansetron HCl (Zofran Inj) 4 mg ONCE STAT IV 07/19/16 00:02 07/19/16 00:06 DC 07/19/16 00:40 Procedures/MDM ER COURSE: I kept the patient and/or family informed of laboratory and diagnostic imaging results throughout the emergency room course. EKG, MONITORS, & DIAGNOSTIC IMAGING: [place] [id number] Radiology Main Line: [phone] DIAGNOSTIC IMAGING REPORT Patient: BERONICA CORONADO : 1965 Age: 51 Sex: M MR #: [id number] DOS: 07/19/16 0002 Ordering MD: DARREL QUINONEZ PA-C Location: [facility] Room/Bed: PROCEDURE: CT abdomen and pelvis without intravenous contrast. CLINICAL INDICATION: Pain. TECHNIQUE: CT of the abdomen/pelvis was performed utilizing axial images with reconstructions in sagittal and coronal planes. The administered radiation dose is CTDI 6.7 mGy, DLP 96.4 mGy-cm. COMPARISON: No pertinent prior examinations were submitted for comparison. FINDINGS: Visualized Chest: The visualized lung bases are clear. Abdomen: The spleen, gallbladder,and adrenal glands are unremarkable. The liver is diffusely decreased in attenuation, compatible with hepatic steatosis. Coarse calcifications are noted throughout the pancreas. The kidneys are without hydronephrosis. Small nonobstructive calculi are noted within both kidneys. There are mild left perinephric and periureteral fat infiltrative changes. There is a 4.2 by 1.6 cm intermediate density subcapsular collection along the posterior aspect of the left kidney. There is no evidence of bowel obstruction. The appendix is normal. No intra- abdominal free air is seen. There is no evidence of intra-abdominal adenopathy or free fluid. Pelvis: There is no evidence of pelvic adenopathy of free fluid. The prostate and bladder are unremarkable. Osseous structures: Prior laminectomy infusion of L4-S1 is noted. IMPRESSION: Bilateral nephrolithiasis without hydronephrosis. Small subcapsular collection along the left kidney presumably due to a subcapsular hematoma. Please correlate for recent trauma or instrumentation. Hepatic steatosis. Pancreatic calcifications compatible with chronic pancreatitis. RPTAT: HIKT .Phillip Humphries MD, Date Time Electronically viewed and signed by .Phillip Humphries MD, on 07/19/2016 01:07 .T/ CC: DARREL QUINONEZ PA-C MEDICATIONS: Morphine, Zofran. Patient tolerated occasional with no adverse reaction. Patient seen improvement in symptoms. LAB INTERPRETATION: CBC showed no evidence of systemic infection or severe anemia. CMP showed no evidence of electrolyte abnormalities, severe acidosis, alkalosis , renal failure, or liver disease. Lipase showed no evidence of acute pancreatitis. UA showed no evidence of acute infection or hematuria. MEDICAL DECISION MAKING: This is a 51-year-old male who presents with left flank pain. Vital signs were reviewed. Patient is afebrile. Patient is not hypoxic. Patient's pain is likely related to nephrolithiasis. Low suspicion for ACS, AAA, perforated ulcer , bowel obstruction, cholecystitis, choledocholithiasis, cholangitis, pancreatitis, hepatic abscess, appendicitis, diverticulitis, nephrolithiasis, septic stone, obstructed stone. Low suspicion for cauda equine syndrome, spinal epidural hematoma, spinal epidural abscess, osteomyelitis, fracture, aortic dissection, AAA, pyelonephritis, nephrolithiasis, septic stone, obstructed stone. Low suspicion for DKA, HONK. The hematoma is likely related to a passing kidney stone. Patient denies trauma, instrumentation or previous injury to his back besides old history of back surgeries. His elevated AST and ALT is related to his chronic pancreatitis. I have spoken at length regarding decreasing and stopping alcohol intake. I have reviewed laboratory studies and imaging studies with Dr. Perea who states that patient can be treated outpatiently. patient does not need to be admitted at this time. DISCHARGE: At this time, patient is stable for discharge and outpatient management with no new complaints during the ER course. Patient was sent home with Giorgio Johnston. Patient to return to the ED in 8 hours for repeat abdominal series exam. Patient will be discharged home with instructions to recheck for new or worsening symptoms such as fever, nausea, weakness, LOC and to follow up with primary care in the next 1-2 days. Patient was advised to return to the ER for any new or worsening symptoms. Plan was discussed and patient and/or family understands and agrees. Home instructions were given. Departure Diagnosis: Primary Impression: Flank pain Condition: Stable DARREL QUINONEZ PA-C Jul 19, 2016 02:35
[2016-07-19 02:37] LABS: ALANINE AMINOTRANSFERASE 74 IU/L (13-69); ALBUMIN 4.4 g/dl (3.3-4.9); ALBUMIN/GLOBULIN RATIO 1.33; ALKALINE PHOSPHATASE 98 IU/L (42-121); ANION GAP 22 (8-16); ASPARTATE AMINO TRANSFERASE 92 IU/L (15-46); BILIRUBIN,INDIRECT 0.1 mg/dl (0-1.1); BILIRUBIN,TOTAL 0.1 mg/dl (0.2-1.3); BLOOD UREA NITROGEN 12 mg/dl (7-20); CALCIUM 9.1 mg/dl (8.4-10.2); CARBON DIOXIDE 27 mmol/L (21-31); CHLORIDE 107 mmol/L (97-110); GLUCOSE 69 mg/dl (70-220); POTASSIUM 3.8 mmol/L (3.5-5.1); SODIUM 152 mmol/L (135-144); TOTAL PROTEIN 7.7 g/dl (6.1-8.1)
[2016-07-19] MEDS ORDERED: HYDR-906 PO (02:52)
[2016-07-19 02:53] LABS: BACTERIA,URINE RARE; SQUAMOUS EPITHELIAL CELL,UR RARE
[2016-07-19] MEDS ORDERED: ONDA4TAB8 PO (02:55)
[2016-07-19 03:13] VITALS: BP 120/79; PULSE 85; RESP 16; TEMP 98.5
== END 2016-07-19 03:16 | disposition home or self-care (01) ==
LOC: FTE 21:53
DX: R10.9 Unspecified abdominal pain (principal); E11.9 Type 2 diabetes mellitus without complications; F17.210 Nicotine dependence, cigarettes, uncomplicated; Z79.4 Long term (current) use of insulin; Z79.84 Long term (current) use of oral hypoglycemic drugs
CPT/HCPCS: 36415; 74176; 80053; 81001; 83690; 85025; 96374; 96375; J2270; J2405; Z7502; 81003

== ENCOUNTER 2016-10-27 11:09 | Emergency (ER) | payer OTHER ==
[~2016-10-27] VITALS: Ht 165.1 cm; Wt 78.5 kg
[~2016-10-27 11:09] MED LIST changes: +HYDR-906 PO; -METF-382 PO; +METF500T4 PO; +ONDA4TAB8 PO
[2016-10-27 11:16] VITALS: Ht 165.1 cm; Wt 78.5 kg
[2016-10-27] MEDS ORDERED: HYDROCODONE/APAP (5/325) TAB PO STA (13:51)
[2016-10-27] MEDS ORDERED: HYDR-906 PO (13:52)
--- NOTE | 2016-10-27 14:05 | ERD ---
ER Documentation Chief Complaint Date/Time DATE: 10/27/16 TIME: 14:02 Chief Complaint BACK PAIN HPI This is a 51-year-old male presenting to the emergency department with history of back pain since 2001 with fusion surgery in 2005 and 2007 complaining of acute on chronic back pain for the past 2 days. Patient rates the pain 7 out of 10 described as increased with movement patient states that the pain comes and goes since 2001. He describes the pain in his lumbar region radiating down his right leg. Patient has tried gabapentin and naproxen without any relief. Patient states that he is going to make an appointment to see his primary care physician Dr. Lunsford. ROS All systems reviewed and are negative except as per history of present illness. Medications Home Meds Active Scripts Hydrocodone/Acetaminophen ([place] 5-325 Tablet) 1 Each Tablet, 1 TAB PO Q6H Y for PAIN, #20 TAB Prov:ELIS LEMUS PA-C 10/27/16 Ondansetron Hcl* (Zofran*) 4 Mg Tablet, 4 MG PO Q6H for NAUSEA AND/OR VOMITING, #30 TAB Prov:DARREL QUINONEZ PA-C 07/19/16 Hydrocodone/Acetaminophen ([place] 5-325 Tablet) 1 Each Tablet, 1 TAB PO Q6H Y for PAIN, #7 TAB Prov:DARRLE QUINONEZ PA-C 07/19/16 Docusate Sodium* (Colace*) 100 Mg Capsule, 100 MG PO BID, #14 CAP Prov:KISHAN PINEDO. 07/07/16 Hydrocodone Bit-Acetaminophen (Hydrocodone Bit-APAP) 5-325MG Tablet, 1 TAB PO Q6H Y for PAIN LEVEL 4-7 for 24 Days, TAB Prov:KISHAN PINEDO. 07/07/16 Reported Medications Insulin Glargine* (Lantus*) 100 Unit/Ml Soln, 15 UNIT SC QHS, #1 VIAL 07/05/16 Gabapentin* (Gabapentin*) 300 Mg Capsule, 300 MG PO BID, #60 CAP 07/05/16 Metformin Hcl* (Metformin Hcl*) 500 Mg Tablet, 500 MG PO WITH BREAKFAST DINNE, # 30 TAB 07/05/16 Allergies Allergies: Coded Allergies: No Known Drug Allergies (Unverified Allergy, Unknown, 1/4/17) PMhx/Soc History of Surgery: Yes (BACK SURGERY X 2) Anesthesia Reaction: No Hx Neurological Disorder: No Hx Respiratory Disorders: No Hx Cardiac Disorders: No Hx Psychiatric Problems: Yes (DEPRESSION ) Hx Miscellaneous Medical Probl: Yes (KIDNEY STONES) Hx Alcohol Use: Yes (OCCASSIONAL DRINKER) Hx Substance Use: Yes (MARIJUANA 7 MONTHS AGO) Hx Tobacco Use: Yes (10 CIGS/ DAY) Smoking Status: Never smoker Physical Exam Vitals Vital Signs Date Time Temp Pulse Resp B/P Pulse Ox O2 Delivery O2 Flow Rate FiO2 10/27/16 11:16 97.8 89 18 139/78 99 Physical Exam GENERAL: WD/WN, in no apparent distress, non-toxic appearing HENT: NC/AT EYES: Conjunctiva normal NECK: Supple PULM: Normal labored breathing CV: Good capillary refill GI: Non-distended, no guarding BACK: no deformities noted, normal spinal curvature, TTP on lumbar region, tender on spine midline, right straight leg raise EXT: No clubbing, cyanosis, or edema NEURO: Moves on all fours, sensation intact, normal gait SKIN: intact PSYCH: Normal mood Results 24 hrs Current Medications Medications (Trade) Dose Ordered Sig/Veronica Route PRN Reason Start Time Stop Time Status Last Admin Dose Admin Acetaminophen/ Hydrocodone Bitart ([place] (5/325)) 2 tab ONCE STAT PO 10/27/16 13:51 10/27/16 13:52 DC 10/27/16 13:59 Procedures/MDM This is a 51-year-old male presenting to the emergency department with history of back pain since 2001 with fusion surgery in 2005 and 2007 complaining of acute on chronic back pain for the past 2 days. Patient rates the pain 7 out of 10 described as increased with movement patient states that the pain comes and goes since 2001. Patient has a retry naproxen gabapentin, I have given him a [place]asper in the ED and he had some relief. I have given him a short course of [place] and discussed with him to follow-up with his primary care physician. I have pulled up cures report and patient did not have any records on file. Patient is neurovascular intact for discharge and stable for discharge. Discussed return to the ER for any worsening signs or symptoms. He understands and agrees with this plan Departure Diagnosis: Primary Impression: Back pain Condition: Stable Patient Instructions: Back Pain (Acute Or Chronic) Referrals: NO PRIMARY,CARE PHYSICIAN (PCP) Jonn Additional Instructions: Continue Naproxen twice a day FOLLOW UP WITH YOUR PRIMARY CARE PHYSICIAN TOMORROW.Return to this facility if you are not improving as expected. Return to this facility if you are not improving as expected. Take all medicines as directed. You have been given a medicine which may cause drowsiness.DO NOT DRIVE OR OPERATE DANGEROUS MACHINERY while taking this medicine! ELIS LEMUS PA-C Oct 27, 2016 14:05
== END 2016-10-27 14:03 | disposition home or self-care (01) ==
LOC: FTE 11:09
DX: M54.5 Low back pain (principal); F17.210 Nicotine dependence, cigarettes, uncomplicated; E11.9 Type 2 diabetes mellitus without complications; Z79.4 Long term (current) use of insulin; Z79.84 Long term (current) use of oral hypoglycemic drugs
CPT/HCPCS: 99283